=== PATIENT | female | born 1955 | race Caucasian/White ===

== ENCOUNTER 2021-05-15 10:16 | Emergency (ER) | payer BC, OTHER ==
[~2021-05-15] VITALS: Ht 175.3 cm; Wt 79.1 kg
[2021-05-15 11:44] LABS: CLARITY,URINE CLEAR (Clear); GLUCOSE, URINE NEGATIVE (Neg); KETONES,URINE NEGATIVE (Neg); LEUKOCYTE ESTERASE ,URINE NEGATIVE (Neg); NITRITES, URINE NEGATIVE (Neg); OCCULT BLOOD,URINE NEGATIVE (Neg); PH,URINE 6.5 (4.8-8.0); PROTEIN,URINE NEGATIVE (Neg); UROBILINOGEN,URINE 0.2 E.U/dL (0.2-1.0)
[2021-05-15 11:58] LABS: COLOR,URINE STRAW (Yellow); UA COLLECTION TYPE CLN CATCH MIDSTREAM
[2021-05-15 12:31] VITALS: BP 122/72
== END 2021-05-15 12:34 | disposition home or self-care (01) ==
LOC: ER 10:17
DX: U07.1 COVID-19 (principal); J02.9 Acute pharyngitis, unspecified; M54.9 Dorsalgia, unspecified; M54.50 Low back pain, unspecified; H92.02 Otalgia, left ear; R05.9 Cough, unspecified; G89.29 Other chronic pain; Z88.0 Allergy status to penicillin; Z88.1 Allergy status to other antibiotic agents; Z88.6 Allergy status to analgesic agent
CPT/HCPCS: 81003; 99283

== ENCOUNTER 2022-06-11 10:29 | Emergency (ER) | payer BC, OTHER ==
[~2022-06-11] VITALS: Ht 175.3 cm; Wt 80.0 kg
[2022-06-11] MEDS ORDERED: normal saline 1000ML IV soln IVB ONE (10:45)
[2022-06-11] MEDS ORDERED: ondansetron/PF 4mg/2ml inj IV ONE (10:45)
[2022-06-11] MEDS ORDERED: ketorolac trometh. 30mg/ml inj. IV ONE (10:45)
[2022-06-11 11:07] LABS: EOSINOPHILS # (AUTO) 0.1 X10'3 (0-0.9); HEMOGLOBIN 12.4 g/dl (12.0-16.0); MEAN PLATELET VOLUME 7.7 FL (7.4-10.4); WHITE BLOOD COUNT 3.9 X10'3 (4.5-11.0)
[2022-06-11 11:09] LABS: BASOPHILS % (AUTO) 1.2 % (0-1); EOSINOPHILS % (AUTO) 2.3 % (0-6); HEMATOCRIT 37.4 % (35.0-45.0); LYMPHOCYTES # (AUTO) 0.8 X10'3 (1.1-4.8); LYMPHOCYTES % (AUTO) 20.6 % (21-51); MEAN CORPUSCULAR HGB CONC 33.3 g/dL (33.0-36.5); MEAN CORPUSCULAR VOLUME 90.1 FL (78-98); MONOCYTES # (AUTO) 0.4 X10'3 (0-0.9); MONOCYTES % (AUTO) 9.5 % (2-12); NEUTROPHILS # (AUTO) 2.6 X10'3 (1.8-7.7); NEUTROPHILS % (AUTO) 66.4 % (42-75); PLATELET COUNT 313 X10'3 (140-440); RED BLOOD COUNT 4.15 X10'6 (4.20-5.60); RED CELL DISTRIBUTION WIDTH 12.2 % (11.5-14.5)
[2022-06-11 11:21] LABS: ALANINE AMINOTRANSFERASE 16 U/L (12-78); ALBUMIN 3.7 G/DL (3.4-5.0); ALBUMIN/GLOBULIN RATIO 0.9 (1.1-1.5); ALKALINE PHOSPHATASE 81 IU/L (46-116); ANION GAP 8 (8-16); ASPARTATE AMINO TRANSFERASE 20 U/L (10-37); BILIRUBIN,TOTAL 0.7 MG/DL (0.1-1.0); BLOOD UREA NITROGEN 14 MG/DL (7-18); BUN/CREATININE RATIO 21.5 (6.6-38.0); CALCIUM 9.4 MG/DL (8.5-10.1); CHLORIDE 104 MMOL/L (99-107); CREATININE 0.65 MG/DL (0.40-0.90); GLUCOSE 103 MG/DL (70-104); POTASSIUM 4.2 MMOL/L (3.5-5.1); SODIUM 140 MMOL/L (135-145); TOTAL CARBON DIOXIDE 28.4 MMOL/L (24-32); TOTAL PROTEIN 7.9 G/DL (6.4-8.2); eGFR > 90 ML/MIN
[2022-06-11] MEDS: morphine 4 MG/ML inj SYRINge IV PRN ×2 (11:38→14:09)
[2022-06-11] MEDS ORDERED: HYDR-3965 PO (12:28)
[2022-06-11] MEDS ORDERED: NAPR-56 PO (12:28)
[2022-06-11] MEDS ORDERED: LIDO700A32 TOP (12:28)
--- NOTE | 2022-06-11 13:23 | NUR ---
PT'S SON, LONG TOSCANO, CALLED FOR UPDATE ON PT STATUS. PT HAD GIVEN PERMISSION TO SPEAK WITH HER SON REGARDING HER VISIT TODAY. MR TOSCANO WAS INFORMED THAT HIS MOTHER HAD FALLEN AT WORK, WAS EXAMINED AND GIVEN MEDICATION FOR DISCOMFORT. XRAYS SHOW NOT RIB FRACTURES. ADVISED THAT THE PT MOST LIKELY HAS BRUISING OF HER RIBS AND KNEES AND WILL BE SORE FOR A COUPLE OF DAYS.
[2022-06-11 16:05] VITALS: BP 131/74
== END 2022-06-11 15:00 | disposition home or self-care (01) ==
LOC: ER 10:29
DX: R07.81 Pleurodynia (principal); M25.561 Pain in right knee; M25.562 Pain in left knee; G89.29 Other chronic pain; M54.9 Dorsalgia, unspecified; Z88.0 Allergy status to penicillin; Z88.1 Allergy status to other antibiotic agents; Z88.6 Allergy status to analgesic agent
CPT/HCPCS: 71250; 80053; 85025; 96361; 96374; 96375; 96376; 99285; J1885; J2270; J2405; J7030

== ENCOUNTER 2023-06-11 01:56 | Emergency (ER) | payer OTHER ==
[~2023-06-11] VITALS: Ht 172.7 cm; Wt 74.6 kg
[~2023-06-11 01:56] MED LIST: LIDO700A32 TOP
[2023-06-11 02:14] VITALS: TEMP 97.3
[2023-06-11 02:45] LABS: BASOPHILS % (AUTO) 0.2 % (0-1); EOSINOPHILS # (AUTO) 0.1 X10'3 (0-0.9); EOSINOPHILS % (AUTO) 0.5 % (0-6); HEMATOCRIT 41.9 % (35.0-45.0); HEMOGLOBIN 14.2 g/dl (12.0-16.0); LYMPHOCYTES # (AUTO) 0.3 X10'3 (1.1-4.8); LYMPHOCYTES % (AUTO) 3.1 % (21-51); MEAN CORPUSCULAR HEMOGLOBIN 30.6 PG (27.0-31.0); MEAN CORPUSCULAR HGB CONC 33.8 g/dL (33.0-36.5); MEAN CORPUSCULAR VOLUME 90.6 FL (78-98); MEAN PLATELET VOLUME 8.4 FL (7.4-10.4); MONOCYTES # (AUTO) 0.4 X10'3 (0-0.9); MONOCYTES % (AUTO) 4.1 % (2-12); NEUTROPHILS # (AUTO) 9.5 X10'3 (1.8-7.7); NEUTROPHILS % (AUTO) 92.1 % (42-75); PLATELET COUNT 194 X10'3 (140-440); RED BLOOD COUNT 4.63 X10'6 (4.20-5.60); RED CELL DISTRIBUTION WIDTH 12.8 % (11.5-14.5); WHITE BLOOD COUNT 10.3 X10'3 (4.5-11.0)
[2023-06-11 03:01] LABS: ALANINE AMINOTRANSFERASE 30 U/L (12-78); ALBUMIN 4.2 G/DL (3.4-5.0); ALBUMIN/GLOBULIN RATIO 1.1 (1.1-1.5); ALKALINE PHOSPHATASE 64 IU/L (46-116); ANION GAP 9 (8-16); ASPARTATE AMINO TRANSFERASE 22 U/L (10-37); BILIRUBIN,TOTAL 1.2 MG/DL (0.1-1.0); BLOOD UREA NITROGEN 25 MG/DL (7-18); BUN/CREATININE RATIO 30.5 (10.0-20.0); CALCIUM 9.2 MG/DL (8.5-10.1); CHLORIDE 106 MMOL/L (99-107); CREATININE 0.82 MG/DL (0.40-0.90); GLUCOSE 167 MG/DL (70-104); LIPASE 31 U/L (16-77); POTASSIUM 3.7 MMOL/L (3.5-5.1); SODIUM 144 MMOL/L (135-145); TOTAL CARBON DIOXIDE 29.1 MMOL/L (24-32); TOTAL PROTEIN 7.9 G/DL (6.4-8.2); eCRCL 68 ML/MIN; eGFR 70 ML/MIN
[2023-06-11] MEDS: ondansetron/PF 4mg/2ml inj IV ONE (03:01)
[2023-06-11] MEDS: morphine 4 MG/ML inj SYRINge IV ONE ×2 (03:01→04:15)
[2023-06-11] MEDS: normal saline 1000ML IV soln IVB ONE (03:26)
[2023-06-11] MEDS: proCHLORperazine 10 MG/2 ml inj IV ONE (04:16)
[2023-06-11] MEDS ORDERED: HYDR-3965 PO (05:58)
[2023-06-11] MEDS ORDERED: ONDA8TAB13 PO (05:58)
[2023-06-11 06:41] LABS: BILIRUBIN,URINE NEGATIVE (Neg); CLARITY,URINE SLIGHTLY CLOUDY (Clear); COLOR,URINE YELLOW (Yellow); GLUCOSE, URINE NEGATIVE (Neg); KETONES,URINE TRACE mg/dl (Neg); LEUKOCYTE ESTERASE ,URINE SMALL (Neg); NITRITES, URINE NEGATIVE (Neg); OCCULT BLOOD,URINE TRACE-INTACT (Neg); PROTEIN,URINE NEGATIVE (Neg); UROBILINOGEN,URINE 0.2 E.U/dL (0.2-1.0)
[2023-06-11 06:47] LABS: UA COLLECTION TYPE CLN CATCH MIDSTREAM
[2023-06-11 06:49] LABS: BACTERIA,URINE FEW /HPF (Neg); FINE GRANULAR CAST 0-3 /LPF (NEGATIVE); HYALINE CASTS 0-3 /LPF (NEGATIVE); MUCUS STRANDS FEW /LPF (Neg); RBC,URINE 0-2 /HPF (0-2); SQUAMOUS EPITHELIAL CELL,UR FEW /LPF (FEW); TRANSITIONAL EPI CELLS,URINE FEW /HPF; WBC CLUMPS,URINE FEW /HPF (NEGATIVE); WBC,URINE 20-30 /HPF (0-4)
[2023-06-11 07:13] VITALS: BP 135/75; PULSE 77; RESP 18; O2SAT 99
[2023-06-11 10:33] LABS: C DIFF ANTIGEN NEGATIVE (NEGATIVE); C DIFF SPECIMEN=DIARRHEA? ACCEPTABLE; C DIFFICILE TOXINS A&B NEGATIVE (Neg)
== END 2023-06-11 07:15 | disposition home or self-care (01) ==
LOC: ER 01:56
DX: R19.7 Diarrhea, unspecified (principal); R11.0 Nausea; R10.9 Unspecified abdominal pain; Z88.0 Allergy status to penicillin; Z88.1 Allergy status to other antibiotic agents; Z88.8 Allergy status to other drugs, medicaments and biological substances
CPT/HCPCS: 36415; 74176; 80053; 81001; 83690; 84145; 85025; 87088; 87324; 87449; 96361; 96374; 96375; 96376; 99285; J0780; J2270; J2405; J7030